=== PATIENT | female | born 1985 | race Caucasian/White ===

== ENCOUNTER 2020-06-18 18:17 | Emergency (ER) | payer BC, SELFPAY ==
[2020-06-18 18:50] VITALS: BP 130/84; PULSE 87; RESP 18; TEMP 36.7; O2SAT 100
--- NOTE | 2020-06-18 18:57 | PC.NURSE ---
sitting in chair in ED room 16. alert. oriented. updated on vitals. no fever at this time. assessments documented.
--- NOTE | 2020-06-18 19:05 | ED.GENADULT ---
HPI - General Adult General Chief complaint: Fever Stated complaint: Diarrhea, fatigue Time Seen by Provider: 06/18/20 18:42 History of Present Illness HPI narrative: Patient is a 34-year-old female who presents to the ER with concerns for Covid infection. Reports yesterday she began to feel fatigued and has had some mild shortness of breath which is resolved. She then developed some mild nausea and diarrhea. Her then became febrile today. 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 Related Data Home Medications Medication Instructions Recorded Confirmed escitalopram oxalate [Lexapro] mg DAILY 06/18/20 Allergies Allergy/AdvReac Type Severity Reaction Status Date / Time [facility] Allergy Hives Verified 06/18/20 18:55 Review of Systems Constitutional: Constitutional: Denies chills, Denies fever(s) and Reports weakness ENT: Denies nasal congestion and Denies sore throat Respiratory: Respiratory: Denies cough, Reports dyspnea and Denies wheezing Gastrointestinal: Gastrointestinal: Denies abdominal pain, Reports diarrhea, Reports nausea and Denies vomiting PMFSH Past Medical History Medical History (Updated 06/18/20 @ 19:13 by Herbert Ferraro MD) Von Willebrands disease Surgical History Surgical History (Updated 06/18/20 @ 19:11 by Herbert Ferraro MD) H/O LEEP Social History Social History (Updated 06/18/20 @ 19:11 by Herbert Ferraro MD) Smoking status: Never smoker Exam Narrative: Exam Narrative: GENERAL: Well-appearing, well-nourished, and in no acute distress. HEAD: Normocephalic, atraumatic. CHEST: Clear to auscultation. No respiratory distress. HEART: Regular rate and rhythm. Normal peripheral pulses. NEURO: Alert and oriented x3. PSYCH: Normal mood and affect. Course Course Emergency Course: Covid swab performed. Follow-up with PCP. Discussed need for self quarantine until results received. Vital Signs Vital signs: Vital Signs Temperature 98.0 F 06/18/20 18:50 Pulse Rate 87 06/18/20 18:50 Respiratory Rate 18 06/18/20 18:50 Blood Pressure 130/84 06/18/20 18:50 Pulse Oximetry 100 06/18/20 18:50 Temperature 98.0 F 06/18/20 18:50 Pulse Rate 87 06/18/20 18:50 Respiratory Rate 18 06/18/20 18:50 Blood Pressure 130/84 06/18/20 18:50 Pulse Oximetry 100 06/18/20 18:50 Medical Decision Making Vital Signs Vital Signs: Vital Signs Temperature 98.0 F 06/18/20 18:50 Pulse Rate 87 06/18/20 18:50 Respiratory Rate 18 06/18/20 18:50 Blood Pressure 130/84 06/18/20 18:50 Pulse Oximetry 100 06/18/20 18:50 Temperature 98.0 F 06/18/20 18:50 Pulse Rate 87 06/18/20 18:50 Respiratory Rate 18 06/18/20 18:50 Blood Pressure 130/84 06/18/20 18:50 Pulse Oximetry 100 06/18/20 18:50 Discharge Plan Discharge Clinical Impression: Person under investigation for COVID-19 Patient Disposition: Home, Self-Care Condition: Stable Instructions: COVID-19 (Coronavirus Disease 2019) (ED) Additional Instructions: Please self quarantine until you receive your results from your primary care physician. Return to the ER if cannot breathe, cannot keep down food or water, you have additional concerns. Take Tylenol for fever and body aches. Make sure to stay hydrated. Prescriptions: No Action escitalopram oxalate [Lexapro] 10 mg Tablet DAILY RF: 0 Follow-up/Referrals: PHYSICIAN NOT ON STAFF,NONSTAFF [Primary Care Provider] - Stand Alone Forms: Work/School Release IP
--- NOTE | 2020-06-18 19:10 | PC.NURSE ---
covid swab done at bedside. sent to lab.
[2020-06-18 19:27] VITALS: PULSE 78; O2SAT 100
[2020-06-19 14:10] LABS: SARS-CoV-2 RNA PCR Negative
== END 2020-06-18 19:28 | disposition home or self-care (01) ==
PROVIDERS: Emergency Provider Emergency Medicine
DX: R53.83 Other fatigue (principal); Z20.828 Contact with and (suspected) exposure to other viral communicable diseases; D68.0 Von Willebrand disease
CPT/HCPCS: 87635; 99283; C9803; U0003

== ENCOUNTER → 2021-06-03 12:55 | Outpatient (CLI) | payer BC, SELFPAY ==
--- NOTE | ~2021-06-03 | US_ITS ---
EXAMINATION: US pelvic complete w TV DATE: 06/03/2021 13:23 INDICATION: Irregular menstruation, unspecified. TECHNIQUE: Multiple transabdominal and transvaginal sonographic images of the pelvis were obtained. COMPARISON: None. FINDINGS: TRANSABDOMINAL ULTRASOUND: The uterus measures 8.7 x 4.2 x 6.3 cm. There is no free fluid in the pelvis. TRANSVAGINAL ULTRASOUND: The endometrial complex measures 3 mm in thickness. There is a 1.4 cm hypoechoic intramural fibroid. There is a 2.1 cm hypoechoic intramural fibroid. There is a 1.6 cm hypoechoic subserosal fibroid. The right ovary measures 3.1 x 1.4 x 1.9 cm. The left ovary measures 3.0 x 2.0 x 2.9 cm. There is normal vascular flow in the ovaries. IMPRESSION: 1. Uterine fibroids. Reviewed, dictated and finalized at location A. IMPRESSION: 1. Uterine fibroids.
== END ==
PROVIDERS: Visit Provider Obstetrics & Gynecology
DX: N92.6 Irregular menstruation, unspecified (principal); D25.9 Leiomyoma of uterus, unspecified
CPT/HCPCS: 76830; 76856

== ENCOUNTER → 2021-11-16 09:12 | Outpatient (CLI) | payer BC, SELFPAY ==
--- NOTE | ~2021-11-16 | XR_ITS ---
EXAMINATION: XR_CERV2-3V_CR EXAM DATE: 11/16/2021 10:30 INDICATION: Pt fell x 1 week ago. Left side of neck and left shoulder pain. Numbness and tingling do wn left arm. TECHNIQUE: Cervical spine frontal, lateral, lateral swimmers, and open-mouth odontoid projections. There is no prior study for comparison. FINDINGS: Mild to moderate disc disease at C4-5, mild at C5-6. Mild cervical arthropathy. There is m ild reversal of the normal cervical lordosis which may be positional or spasm. There are no acute fra ctures or dislocations identified. There is no subcutaneous gas. The soft tissue is unremarkable. There are no radiopaque foreign bodies. IMPRESSION: Mild reversal normal cervical lordosis. Mild spondylosis. Reviewed, dictated and finalized at location .
--- NOTE | ~2021-11-16 | XR_ITS ---
EXAMINATION: XR shoulder LT min 2V EXAM DATE: 11/16/2021 10:30 INDICATION: Fall, initial encounter . TECHNIQUE: The following left shoulder projections obtained: frontal projection with internal rotatio n, frontal projection with external rotation, Grashey, and axillary (4+ views). There is no prior st udy for comparison. FINDINGS: No evidence of left shoulder rotator cuff calcific tendinosis. Unremarkable left glenohum eral and acromioclavicular joints. There are no acute fractures or dislocations identified. There i s no subcutaneous gas. The soft tissue is unremarkable. There are no radiopaque foreign bodies. IMPRESSION: 1. Unremarkable left shoulder exam. Reviewed, dictated and finalized at location G.
== END ==
PROVIDERS: Visit Provider Family Medicine
DX: M25.512 Pain in left shoulder (principal); M47.812 Spondylosis without myelopathy or radiculopathy, cervical region
CPT/HCPCS: 72040; 73030

== ENCOUNTER → 2022-08-19 16:51 | Outpatient (CLI) | payer BC, SELFPAY ==
--- NOTE | ~2022-08-19 | XR_ITS ---
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 RESULT: Lines, tubes, and devices: None. Lungs and pleura: Mild bilateral reticulonodular opacities. Cardiomediastinal silhouette: Stable. Other: No acute osseous or upper abdominal finding. Scoliosis. IMPRESSION: Pulmonary opacities may represent bronchiolitis, as can be seen with atypical infection, asthma, aspi ration, and small airways disease. Reviewed, dictated and finalized at location K. ESS CONTROL BOARD OPERATOR IMPRESSION: Pulmonary opacities may represent bronchiolitis, as can be seen with atypical i nfection, asthma, aspiration, and small airways disease.
== END ==
PROVIDERS: PCP Family Medicine; Visit Provider Family Medicine
DX: R05.1 Acute cough (principal); R91.8 Other nonspecific abnormal finding of lung field
CPT/HCPCS: 71046

== ENCOUNTER 2023-03-25 15:00 | Emergency (ER) | payer BC, SELFPAY ==
[2023-03-25 15:02] VITALS: BP 151/94; PULSE 94; RESP 14; TEMP 36.9; O2SAT 100
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
[2023-03-25] MEDS: IBUPROFEN 400 MG TABLET 800 MG PO (15:31)
[2023-03-25] MEDS: CYCLOBENZAPRINE HCL 10 MG TABLET PO (15:31)
== END 2023-03-25 15:55 | disposition home or self-care (01) ==
LOC: ANHED 15:53
PROVIDERS: Emergency Provider Emergency Medicine; PCP Family Medicine
DX: S16.1XXA Strain of muscle, fascia and tendon at neck level, initial encounter (principal); K21.9 Gastro-esophageal reflux disease without esophagitis; V89.2XXA Person injured in unspecified motor-vehicle accident, traffic, initial encounter
CPT/HCPCS: 99283; A9270

== ENCOUNTER → 2023-04-18 07:30 | Outpatient (CLI) | payer BC, SELFPAY ==
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
== END ==
PROVIDERS: PCP Family Medicine; Visit Provider Family Medicine
DX: M54.2 Cervicalgia (principal); R20.0 Anesthesia of skin; G93.5 Compression of brain
CPT/HCPCS: 70551

== ENCOUNTER → 2023-04-25 07:28 | Outpatient (CLI) | payer BC, SELFPAY ==
--- NOTE | ~2023-04-25 | MR_ITS ---
MRI of the cervical spine Clinical History: Pain Technique: Axial T2-weighted and gradient images, and sagittal T1-weighted, T2-weighted, and STIR shea ges were acquired. Findings: There is mild reversal of the normal cervical lordosis. No fracture or subluxation evident. No suspicious bone marrow signal abnormality seen. At C2-C3, there is no disc bulge or herniation. No spinal canal stenosis, cord compression, or neural foraminal narrowing. At C3-C4, there is no disc bulge or herniation. No spinal canal stenosis, cord compression, or neural foraminal narrowing. At C4-C5, there is mild disc osteophyte complex with minimal canal stenosis but no sung cord dannielle gabbie. Bilateral neural foramina are preserved. At C5-C6, there is minimal disc bulge. No spinal canal stenosis, cord compression, or neural foramina l narrowing. At C6-C7, there is no disc bulge or herniation. No spinal canal stenosis, cord compression, or neural foraminal narrowing. No abnormal signal seen in the spinal cord. Paravertebral soft tissues are unremarkable. Impression: Minimal degenerative changes, as above. Reviewed, dictated and finalized at location . Impression: Minimal degenerative changes, as above.
== END ==
PROVIDERS: PCP Family Medicine; Visit Provider Family Medicine
DX: M54.2 Cervicalgia (principal); G93.5 Compression of brain; R20.0 Anesthesia of skin; V87 Traffic accident of specified type but victim's mode of transport unknown
CPT/HCPCS: 72141

== ENCOUNTER 2023-06-12 00:52 | Day surgery (SDC) | payer BC, SELFPAY ==
[2023-06-05 09:10] VITALS: BMI 293.2
--- NOTE | 2023-06-05 09:17 | PC.NURSE ---
Report to the Outpatient Waiting Room, entrance under the green pavilion located off [facility], at time _1000_ on date _[id number]_. Planned Procedure Time: _1200_. Time changes happen often and if your time is changed the preop area will call you the afternoon before. - You and your visitor will be asked to self-screen and do not enter if you have any COVID symptoms. - A mask is optional within the hospital at this time. Patients may have clear liquids (water, carbonated beverages, clear teas, apple juice) until 3 hours prior to surgery with a maximum of 20 ounces. - No food from midnight until time of surgery Take the following medications with a SIP of water the morning of surgery: None DO NOT STOP ANY OF YOUR OTHER PRESCRIPTION MEDICATIONS PRIOR TO SURGERY ?EXCEPT THE FOLLOWING Medications to discontinue per physician ____None Date to take last dose Please no make-up, nail icelandic, hairspray, perfume, deodorant, or body powder the day of surgery. No jewelry (including any body piercings) or valuables the day of surgery, leave them at home. Please take a shower or bath the night before, or the morning of, surgery with an antibacterial soap. Wear comfortable, loose fitting clothing. - Jewelry must be removed prior to entering the operating room. Rings and piercings that are not removed may be cut off. - The hospital will not accept responsibility for valuables. - Please leave all valuables, including medications, at home the day of surgery. If you are going home after surgery, a licensed transport truck driver must drive you home. - NO public transportation without another adult if you receive anesthesia. - We recommend that an adult stay with you for 24 hours following discharge. - We also recommend that you do not drive, make important decision, drink alcoholic beverages, or take any drugs that were not prescribed by your health care provider for at least 24 hours after your discharge time. Follow any additional instructions given to you from your surgeon. If you or anyone in your household have experienced Covid symptoms in the past week, please notify your surgeon or the nurse liaison at the phone number below for possible testing. Telephone instructions given to __Patient___and asked if any additional questions and then verbalized understanding. Patient advised to call surgeon office or pre surgery nurse liaison [phone] if any additional questions.
[2023-06-05 14:22] VITALS: BMI 29.3
--- NOTE | 2023-06-11 16:07 | PM.IMHP ---
H&P: HPI History of Present Illness Date/Time: 06/11/23 16:07 Chief Complaint: severe cervical dysplasia Narrative: Allie is a 37yo G0, LMP who presents for LEEP. She has a h/o LEEP in 11/2019 (cannot remember final pathology). Pap last year was abnormal (LGSIL/HPV +); colpo showed HPV affect. Pap this year was once again LGSIL/HPV +. She underwent colpo 05/14/23 which showed RADHA 3 at 12o'clock and ECC. Review of Systems Constitutional: Constitutional: Denies chills, Denies fever(s) and Denies headache(s) Eyes: Eyes: Denies change in vision ENT: Denies dizziness and Denies headache(s) Cardiovascular: Cardiovascular: Denies chest pain and Denies dyspnea Respiratory: Respiratory: Denies cough and Denies dyspnea Gastrointestinal: Gastrointestinal: Denies abdominal pain and Denies change in stool character Genitourinary: Genitourinary: Denies abnormal menses, Denies pelvic pain, Denies vaginal discharge, Denies vaginal odor and Denies vaginal pruritus Neurologic: Denies dizziness and Denies headache(s) Psychiatric: Psychiatric: Denies anxiety and Denies depression [facility] Past Medical History Medical History GERD (gastroesophageal reflux disease) Normal colonoscopy Von Willebrands disease Surgical History Surgical History H/O colposcopy with cervical biopsy H/O LEEP H/O wisdom tooth extraction History of loop electrosurgical excision procedure (LEEP) Family History Family History Mother Alzheimers disease Other Diabetes mellitus Epilepsy Hypertension Non Hodgkin's lymphoma Social History Social History Smoking status: Never smoker Alcohol intake: current Drinks per week: 3 Substance use: never Substance use type: does not use Lack of Transportation: No Lack of Food: Never True Current Housing: I Have Housing Concerned About Future Housing: No Difficulty Paying Gas/Electric Bills: No Difficulty Paying for Meds: No Currently Unemployed: No Education: Master's Degree or Higher Living arrangements: with family Occupation/Education: occupation Gender identity (if verbalized by the patient): Female Sexual Orientation (if Verbalized by the Patient): Straight or Heterosexual Spiritual care concerns: No Meds Home Medications and Allergies Home Medications Medication Instructions Recorded Confirmed Type pantoprazole 20 mg tablet,delayed 20 mg PO QAM 02/12/22 06/05/23 History release (Protonix) Allergies Allergy/AdvReac Type Severity Reaction Status Date / Time cefaclor [From [facility]] Allergy Hives Verified 06/05/23 09:10 Exam Const: General: cooperative, healthy appearing, comfortable and no acute distress Orientation/consciousness: patient oriented x3 Resp: Effort & Inspection: normal respiratory effort Cardio: Rate: regular rate GI: Inspection: normal to inspection GI Palp: No abdominal tenderness and Yes Soft to palpation : Other: deferred to OR Skin: General skin exam: normal color Neuro: General: patient oriented x3 Extrem: General: normal to inspection Psych: Appearance: grossly normal Affect: normal affect Attitude: cooperative Assessment and Plan Assessment and plan (1) 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
[2023-06-12 10:40] VITALS: BP 117/71; PULSE 89; RESP 14; TEMP 37.3; O2SAT 100; BMI 29.5
[2023-06-12] MEDS: LACTATED RINGERS 1,000 ML 30 ML IV CONT (11:00)
--- NOTE | 2023-06-12 11:00 | P.PNAN_ITS ---
Anes - Initial Pre Proc Eval Procedure: Operation Date: 06/12/23 12:00 Proposed Procedures p Loop Electrical Excision Procedure - Merissa Orosco MD Date/Time: 06/12/23 11:00 Surgeon: Merissa Orosco MD Pre Op Diagnosis: cervical dysplasia Patient Data Age: 37 Gender: F Height: 1.78 m Weight: 92.7 kg Allergies Allergy/AdvReac Type Severity Reaction Status Date / Time cefaclor [From Ceclor] Allergy Hives Verified 06/05/23 09:10 Home Medications Medication Instructions Recorded Confirmed Type pantoprazole 20 mg tablet,delayed 20 mg PO QAM 02/12/22 06/05/23 History release (Protonix) Patient hx anesthesia problems: none Family hx anesthesia problems: none Results Review: All pre-operative results and documents have been reviewed as part of the pre- operative evaluation. [facility] Past Medical History Medical History GERD (gastroesophageal reflux disease) Normal colonoscopy Von Willebrands disease Surgical History Surgical History H/O colposcopy with cervical biopsy H/O LEEP H/O wisdom tooth extraction History of loop electrosurgical excision procedure (LEEP) Family History Family History Mother Alzheimers disease Other Diabetes mellitus Epilepsy Hypertension Non Hodgkin's lymphoma Social History Social History Smoking status: Never smoker Alcohol intake: current Drinks per week: 3 Substance use: never Substance use type: does not use Lack of Transportation: No Lack of Food: Never True Current Housing: I Have Housing Concerned About Future Housing: No Difficulty Paying Gas/Electric Bills: No Difficulty Paying for Meds: No Currently Unemployed: No Education: Master's Degree or Higher Living arrangements: with family Occupation/Education: occupation Gender identity (if verbalized by the patient): Female Sexual Orientation (if Verbalized by the Patient): Straight or Heterosexual Spiritual care concerns: No Anes - Eval Final PreProcedure Day of Procedure 06/12/23 11:00 Patient weight: obese Heart: regular rate and rhythm Lungs: clear to auscultation Airway: Mallampati scale class II Neurological: alert and oriented Last oral intake: >/= 8 hours ASA classification: II Emergent: no Anesthetic plan: proceed Anesthesia type and monitoring: general GIVS and standard monitoring Results Review: All pre-operative results and documents have been reviewed as part of the pre- operative evaluation. Informed Consent: The patient's anesthetic plan and its attendant risks and benefits were discussed with the patient/family/POA. Questions were solicited and answers provided to the satisfaction of the patient/family/POA.
[2023-06-12] MEDS: ACETAMINOPHEN 500 MG TABLET 1000 MG PO (11:08)
--- NOTE | 2023-06-12 11:58 | WPDHPUPDATE1 ---
History and Physical Update Update Date/Time: 06/12/23 11:58 History and Physical has been reviewed, including an updated exam of the patient. There are NO changes in the patient's condition. Risks, benefits, and alternatives have been discussed and questions answered. Patient agrees to proceed with LEEP, top hat, and ECC..
[2023-06-12] MEDS: KETOROLAC 30 MG/ML VIAL (*BKC) IV PUSH (12:21)
[2023-06-12] MEDS: BUPIVACAINE/EPINEPHRINE 0.5% 50 ML VIAL 10 ML INFILTRATE (12:25)
[2023-06-12] MEDS: IODINE/POTASSIUM IODIDE 8 ML SOLUTION TOPICAL (12:26)
--- NOTE | 2023-06-12 12:40 | P.OP_ITS ---
Procedure Note - Detailed Date of Procedure 06/12/23 Pre-op Diagnosis cervical dysplasia - RADHA 3 Post-op Diagnosis Same Procedure Performed LEEP, top hat, ECC Surgeon Merissa Orosco MD Anesthesia MAC and Local (10cc of 0.5% Marcaine w/ epi) Findings No uptake of Lugol's solution at 12o'clock. Good hemostasis at end of case. Description of Procedure Allie was taken to the operating room where she was placed under MAC sedation without complications. She was then prepped and draped in the normal fashion in the dorsal lithotomy position with her legs in low Shahzad stirrups. A time-out was performed and no preoperative antibiotics were indicated. A coated speculum attached to suction was then placed within the vagina, where the cervix was easily identified. Lugol?s solution was then applied to the cervix. No uptake was noted at 12. The cervix was then injected with 0.5% Marcaine with epinephrine (10cc was used). The LEEP was then obtained in a single swipe from the patient?s left to right. The LEEP was removed and a silk stitch was placed at 12:00 p.m. to orient the tissue for pathology. A top-hat was then obtained in the same manner, but split in half so each portion was sent separately (ant- 9-3, post 8-4). An ECC was then collected. The LEEP bed was then cauterized using the roller ball. Good hemostasis was noted. Sponge, lap, instrument, and needle counts were correct at the end of the procedure. The patient was awoken from anesthesia and taken to recovery in a stable condition with plans of same- day discharge home. Estimated Blood Loss 2 Pathology Yes (Leep bed w/ stitch at 12, ant and post top hat sent separately, ECC) Complications No immediate complications Condition Stable Disposition Same day [facility] Billing Surgery - Charge Forward: Surgery Billing
[2023-06-12 12:41] VITALS: BP 117/69; PULSE 76; RESP 16; O2SAT 99
[2023-06-12 13:10] VITALS: BP 117/68; PULSE 81; O2SAT 100
[2023-06-12 13:30] VITALS: BP 115/65; PULSE 78
== END 2023-06-12 13:40 | disposition home or self-care (01) ==
PROVIDERS: PCP Family Medicine; Visit Provider Obstetrics & Gynecology
PROC: 0UBC7ZZ Excision of Cervix, Via Natural or Artificial Opening (ICD-10-PCS; CPT 57522; principal; 2023-06-12 12:00)
DX: D06.1 Carcinoma in situ of exocervix (principal); K21.9 Gastro-esophageal reflux disease without esophagitis; D68.00 Von Willebrand disease, unspecified; E66.9 Obesity, unspecified; Z68.29 Body mass index [BMI] 29.0-29.9, adult
CPT/HCPCS: 57522; 88305; 88307; A9270; J1885; J2250; J2405; J2704; J3010; J7120